=== PATIENT | male | born 1980 | race Caucasian/White ===

== ENCOUNTER 2020-04-28 21:11 | Emergency (ER) | payer OTHER, SELFPAY ==
[2020-04-28 21:20] VITALS: BP 153/83; PULSE 81; RESP 15; TEMP 36.8; O2SAT 98
--- NOTE | 2020-04-28 21:33 | ED.EPISTAXIS ---
HPI - Epistaxis General Chief complaint: Epistaxis Stated complaint: nose bleed Time Seen by Provider: 04/28/20 21:33 Source: patient Mode of arrival: ambulatory Limitations: no limitations History of Present Illness HPI Narrative: 40-year-old previously well man comes in today complaining of nosebleeds from his left nare off and on for 3 days. He denies injury, cough, cold symptoms, fever or prior similar symptoms. He has had no unusual bleeding or bruising. He denies night sweats, shortness of breath and weakness. MD complaint: epistaxis Location: left nostril Onset (ago): day(s) (3) Duration: intermittent Treatment prior to arrival: nose pinching Related Data Allergies Allergy/AdvReac Type Severity Reaction Status Date / Time No Known Allergies Allergy Verified 04/28/20 21:28 Review of Systems Constitutional: Constitutional: Denies chills, Denies fever(s) and Denies weakness Eyes: Eyes: Denies change in vision and Denies photophobia ENT: Reports as per HPI, Denies dysphagia, Reports epistaxis, Denies nasal congestion and Denies sore throat Cardiovascular: Cardiovascular: Denies chest pain and Denies radiating jaw, neck or arm pain Respiratory: Respiratory: Denies cough, Denies dyspnea and Denies wheezing Gastrointestinal: Gastrointestinal: Denies abdominal pain, Reports nausea and Denies vomiting Genitourinary: Genitourinary: Denies hematuria, Denies dysuria and Denies urinary frequency Musculoskeletal: Musculoskeletal: Denies arthralgias, Denies joint swelling and Denies muscle cramps Integumentary/Breasts: Skin/Breast: Reports pruritus, Reports erythema and Reports rash Neurologic: Denies vertigo, Denies dizziness, Denies syncope, Denies headache(s) and Denies focal weakness Endocrine: Endocrine: Denies polydipsia and Denies polyuria Hematologic/Lymphatic: Hematologic/Lymphatic: Denies easy bleeding and Denies easy bruising Allergic/Immunologic: Allergic/Immunologic: Denies lip swelling and Denies wheezing PMFSH Surgical History Surgical History H/O bariatric surgery H/O knee surgery H/O shoulder surgery Social History Social History Smoking status: Never smoker Living arrangements: with family Exam Const: General: no acute distress and alert Orientation/consciousness: patient oriented x3 HENMT: Head: normal to inspection Ears: external ears normal, TM's normal bilaterally and EAC's normal General nose exam: Epistaxis present on the left (septal) anterior source Face and sinus: normal facial exam Mouth: Yes Normal oral and palatal mucosa present and Yes moist mucous membranes Throat: posterior oropharynx normal (save for scant blood) Eyes: Conjunctivae: conjunctivae normal Pupils: Equal, round and reactive pupils present EOM: EOMs intact bilaterally Neck: Neck: normal visual inspection and no lymphadenopathy Resp: Effort & Inspection: normal respiratory effort and not labored Auscultation: clear to auscultation bilaterally, no rales, no rhonchi and no wheezes Cardio: Rate: regular rate Rhythm: regular rhythm Heart sounds: no murmurs Skin: General skin exam: normal color, no jaundice and no pallor Rashes: no rashes Neuro: General: patient oriented x3, moves all extremities, no focal motor deficits and CN's II-XI intact bilaterally Speech: normal speech Extrem: General: normal to inspection and no clubbing, cyanosis or edema Psych: Appearance: grossly normal and well kempt Mental Status: mental status grossly normal Affect: normal affect Attitude: cooperative Thought content: Yes Normal thought content present Course Vital Signs Vital signs: Vital Signs Temperature 36.8 C 04/28/20 21:20 Pulse Rate 81 04/28/20 21:20 Respiratory Rate 15 04/28/20 21:20 Blood Pressure 153/83 H 04/28/20 21:20 Pulse Oximetry 98 04/28/20 21:20 Temperature
[2020-04-28] MEDS: OXYMETAZOLINE HCL 0.05% NAS 15 ML BTL (*BKC) 1 SPRAY (21:38)
[2020-04-28 22:02] LABS: Basophils Absolute Auto 0.08 K/mm3 (0.00-0.10); Basophils Percent Auto 0.9 % (0.0-1.0); Eosinophils Absolute Auto 0.39 K/mm3 (0.02-0.50); Eosinophils Percent Auto 4.3 % (1.0-6.0); Hemoglobin 14.6 g/dL (14.0-18.0); Immature Granulocyte Absolute 0.03 K/mm3 (0.00-0.00); Immature Granulocyte Percent A 0.3 % (0.0-0.0); Lymphocytes Percent Auto 22.2 % (18.0-42.0); Mean Corpuscular Hemoglobin 32.1 pg (27.0-31.0); Mean Corpuscular Volume 94.5 fL (78.0-102.0); Mean Platelet Volume 9.1 fl (8.7-11.0); Monocytes Absolute Auto 0.61 K/mm3 (0.10-0.90); Monocytes Percent Auto 6.8 % (2.0-11.0); Neutrophils Absolute Auto 5.9 K/mm3 (1.7-7.2); Neutrophils Percent Auto 65.5 % (50.0-70.0); Platelet Count Result 272 K/mm3 (150-420); Red Blood Count 4.55 M/mm3 (4.70-6.10); Red Cell Distribution Width 13.2 % (11.6-14.4)
[2020-04-28 22:17] LABS: Partial Thromboplastin Time 27.5 SEC (22.3-31.6); Prothrombin Time 10.1 Seconds (9.64-11.0)
--- NOTE | 2020-04-28 22:17 | PC.NURSE ---
ERP ATTEMPTED LEFT NASAL PACKING WITH AFRIN. BLEEDING BEGAN SHORTLY AFTER. ERP THEN INSERTED LEFT NASAL BALLOON.
[2020-04-28 22:27] LABS: Alanine Aminotransferase 40 U/L (16-63); Albumin Level 3.4 g/dL (3.4-5.0); Alkaline Phosphatase 107 U/L (46-116); Anion Gap 15.4 mmol/L (7-16); Aspartate Amino Transferase 24 U/L (15-37); Bilirubin,Total 0.2 mg/dL (0.00-1.00); Blood Urea Nitrogen 13 mg/dL (7-18); Calcium 7.8 mg/dL (8.5-10.1); Carbon Dioxide 22 mmol/L (21-32); Chloride 101 mmol/L (98-108); Estimated CRCL calculation 158 ml/min; Estimated Glomerular Filt Rate > 60; Glucose 108 mg/dL (70-99); Osmolality Calculated 281 mOsm/kg (285-295); Potassium 3.4 mmol/L (3.5-5.1); Sodium 135 mmol/L (136-145); Total Protein 6.7 g/dL (6.4-8.2)
[2020-04-28 22:42] VITALS: BP 133/75; RESP 15; O2SAT 98
[2020-04-28] MEDS: AMOXICILLIN 500 MG CAPSULE 1000 MG PO (22:48)
== END 2020-04-28 22:52 | disposition home or self-care (01) ==
PROVIDERS: Emergency Provider Emergency Medicine
DX: R04.0 Epistaxis (principal)
CPT/HCPCS: 30901; 36415; 80053; 85025; 85610; 85730; 99283; A9270

== ENCOUNTER 2020-04-30 21:16 | Emergency (ER) | payer OTHER, SELFPAY ==
--- NOTE | 2020-04-30 21:26 | ED.EPISTAXIS ---
HPI - Epistaxis General Chief complaint: Epistaxis Stated complaint: nose bleed Time Seen by Provider: 04/30/20 21:36 Source: patient Mode of arrival: ambulatory Limitations: no limitations History of Present Illness HPI Narrative: 40-year-old man comes in today complaining of bleeding from his left nare. The patient was seen here 2 days ago after left near bleeding intermittently for several days. At that time a 4.5 cm anterior rhino rocket was placed and hemostasis was achieved. His coags, LFTs and CBC were normal. he followed up with the ear nose and throat doctor in the next day who did some cauterization and repacked it. Began to have some bleeding yesterday and removed the packing. He had 10 minutes episodes of bleeding off and on for much of the day, knitting in his return here. complaint: epistaxis Location: left nostril Onset (ago): day(s) (5) Duration: intermittent Treatment prior to arrival: nose pinching and head leaned forward Related Data Allergies Allergy/AdvReac Type Severity Reaction Status Date / Time No Known Allergies Allergy Verified 04/28/20 21:28 Review of Systems Constitutional: Constitutional: Denies chills, Denies fever(s) and Denies weakness Eyes: Eyes: Denies change in vision and Denies photophobia ENT: Reports as per HPI, Denies dysphagia, Reports nasal congestion and Denies sore throat Cardiovascular: Cardiovascular: Denies chest pain and Denies radiating jaw, neck or arm pain Respiratory: Respiratory: Denies cough, Denies dyspnea and Denies wheezing Gastrointestinal: Gastrointestinal: Denies abdominal pain, Denies diarrhea, Reports nausea and Denies vomiting Hematologic/Lymphatic: Hematologic/Lymphatic: Denies easy bleeding and Denies easy bruising Allergic/Immunologic: Allergic/Immunologic: Denies lip swelling and Denies wheezing PMFSH Surgical History Surgical History H/O bariatric surgery H/O knee surgery H/O shoulder surgery Social History Social History Smoking status: Never smoker Exam Const: General: alert Nutritional Appearance: obese Orientation/consciousness: patient oriented x3 Other: Mild acute distress HENMT: Head: normal to inspection Ears: external ears normal, TM's normal bilaterally and EAC's normal Mouth: Yes Normal oral and palatal mucosa present and Yes moist mucous membranes Throat: posterior oropharynx normal ( save for some scant draining blood.) Other: Oozing left septal lesion. Diffuse hyperemia. No right anterior bleeding source visible although there is a scant amount of blood in the right nare. Eyes: Conjunctivae: conjunctivae normal Pupils: Equal, round and reactive pupils present EOM: EOMs intact bilaterally Resp: Effort & Inspection: normal respiratory effort and not labored Auscultation: clear to auscultation bilaterally, no rales, no rhonchi and no wheezes Cardio: Rate: regular rate Rhythm: regular rhythm Heart sounds: no murmurs Skin: General skin exam: normal color, no jaundice and no pallor Rashes: no rashes Neuro: General: patient oriented x3, moves all extremities, no focal motor deficits and CN's II-XI intact bilaterally Speech: normal speech Extrem: General: normal to inspection and no clubbing, cyanosis or edema Psych: Appearance: grossly normal and well kempt Mental Status: mental status grossly normal Affect: normal affect Attitude: cooperative Thought content: Yes Normal thought content present Procedures Epistaxis Control left: Epistaxis Control Date: 04/30/20 Time Out Performed: Yes Nose Prepped With: oxymetazoline Direct Inspection: yes and anterior source identified Clots Removed by: blowing nose and manually Cautery Used: none Device Inserted: hemostatic balloon and hemostatic dressing Device Size: 4 Patient Tolerated Procedure: w
[2020-04-30 21:30] VITALS: BP 176/102; PULSE 81; RESP 18; TEMP 37; O2SAT 97
[2020-04-30] MEDS: OXYMETAZOLINE HCL 0.05% NAS 15 ML BTL (*BKC) 4 SPRAY NASAL (21:50)
[2020-04-30 22:34] VITALS: BP 161/98
--- NOTE | 2020-04-30 22:44 | PC.NURSE ---
Report to [facility]
--- NOTE | 2020-04-30 22:57 | PC.NURSE ---
oriented to new patient care technician at bedside placing rhino-rocket
[2020-04-30 22:59] VITALS: BP 140/90; PULSE 88; RESP 18
[2020-04-30 23:28] VITALS: BP 144/90; PULSE 88; RESP 16; TEMP 36.6
== END 2020-04-30 23:29 | disposition home or self-care (01) ==
PROVIDERS: Emergency Provider Emergency Medicine
DX: R04.0 Epistaxis (principal)
CPT/HCPCS: 30901; 99282; 99283; A9270

== ENCOUNTER 2020-05-02 12:09 | Emergency (ER) | payer OTHER, SELFPAY ==
[2020-05-02 12:30] VITALS: BP 135/72; PULSE 68; RESP 20; O2SAT 98
--- NOTE | 2020-05-02 12:53 | ED.EPISTAXIS ---
HPI - Epistaxis General Chief complaint: Epistaxis Stated complaint: bleeding nose Source: patient Mode of arrival: ambulatory Limitations: no limitations History of Present Illness HPI Narrative: 40-year-old male patient is here with chief complaints of continuous bleeding from the left nostril. Patient states that he has been dealing with the bleeding on the left side for almost a week and has been seen in the ER and by an ENT in this past week. He had a cauterization of the nasal septum done by the ENT but he continued to bleed after that and was seen in the ER 3 days ago and had a rhino rocket put in place. patient states that since then the bleeding has not completely stopped. Apparently this morning the bleeding got worse and it was leaking through the rhino rocket. patient states that in the allergen season he does get dried nose however he denies any nose picking. He denies any other source of bleeding in his urine or stools. patient does not take any blood thinners. MD complaint: epistaxis Location: left nostril Onset (ago): day(s) (several) Related Data Allergies Allergy/AdvReac Type Severity Reaction Status Date / Time No Known Allergies Allergy Verified 04/28/20 21:28 [facility] Past Medical History Medical History Left-sided epistaxis Surgical History Surgical History H/O bariatric surgery H/O knee surgery H/O shoulder surgery Social History Social History Smoking status: Never smoker Exam Const: General: no acute distress and alert Orientation/consciousness: patient oriented x3 HENMT: Head: normal to inspection General nose exam: Epistaxis present (left ) on the left anterior source Resp: Effort & Inspection: normal respiratory effort Neuro: General: patient oriented x3 and moves all extremities Speech: normal speech Gait exam (Neuro): Normal gait present Psych: Mental Status: mental status grossly normal Course Course Emergency Course: The old rhino rocket has been removed without any difficulty. I am unable to identify any bleeding source. Left nostril has been irrigated generously with normal saline and after 2 sprays of Afrin the left nostril is packed again with a rhino rocket. patient tolerated that well. Vital Signs Vital signs: Vital Signs Pulse Rate 68 05/02/20 12:30 Respiratory Rate 20 05/02/20 12:30 Blood Pressure 135/72 05/02/20 12:30 Pulse Oximetry 98 05/02/20 12:30 Pulse Rate 68 05/02/20 12:30 Respiratory Rate 05/02/20 12:30 Blood Pressure 135/72 05/02/20 12:30 Pulse Oximetry 98 05/02/20 12:30 Procedures Epistaxis Control left: Epistaxis Control Date: 05/02/20 Epistaxis Control Time: 13:14 Time Out Performed: Yes MDM - Epistaxis MDM Narrative Medical decision making narrative: epistaxis is controlled. Patient has an appointment with his ENT specialist tomorrow morning and he is encouraged to keep it Discharge Plan Discharge Clinical Impression: Left-sided epistaxis Patient Disposition: Home, Self-Care Condition: Stable Instructions: Antibiotic Form, Nosebleed (ED) Additional Instructions: stay well-hydrated. keep follow-up with the ENT specialist as scheduled tomorrow Prescriptions: No Action amoxicillin 875 mg tablet 875 mg PO Q12H Qty: 20 RF: 0 Follow-up/Referrals: UNKNOWN,DOCTOR [Primary Care Provider] -
[2020-05-02] MEDS: OXYMETAZOLINE HCL 0.05% NAS 15 ML BTL (*BKC) 1 SPRAY (13:05)
[2020-05-02 13:21] VITALS: RESP 16
== END 2020-05-02 13:22 | disposition home or self-care (01) ==
PROVIDERS: Emergency Provider Emergency Medicine
DX: R04.0 Epistaxis (principal)
CPT/HCPCS: 30901; 99282; 99283; A9270

== ENCOUNTER 2020-05-03 11:02 | Emergency (ER) | payer OTHER, SELFPAY ==
[2020-05-03 11:10] VITALS: BP 181/85; PULSE 83; RESP 18; TEMP 37.1; O2SAT 100
[2020-05-03 11:41] LABS: Basophils Absolute Auto 0.1 K/mm3 (0.0-0.1); Eosinophils Absolute Auto 0.3 K/mm3 (0-0.3); Eosinophils Percent Auto 4.4 % (0-4.4); Hematocrit 35.9 % (42.0-52.0); Hemoglobin 11.9 g/dL (14.0-18.0); Immature Granulocyte Absolute 0.03 K/mm3 (0.00-0.031); Immature Granulocyte Percent A 0.4 % (0-0.5); Lymphocytes Absolute Auto 1.46 K/mm3 (0.9-3.2); Lymphocytes Percent Auto 19.9 % (18.3-44.2); Mean Corpuscular HGB Conc 33.1 g/dl (32-36); Mean Corpuscular Hemoglobin 31.6 pg (26-34); Mean Corpuscular Volume 95.5 fl (80-100); Mean Platelet Volume 9.6 fl (7.4-10.4); Monocytes Absolute Auto 0.5 K/mm3 (0.1-0.6); Monocytes Percent Auto 7.3 % (2.6-8.5); Neutrophils Absolute Auto 4.9 K/mm3 (1.3-6.7); Platelet Count Result 319 k/mm3 (150-375); Red Blood Count 3.76 M/mm3 (4.6-6.20); Red Cell Distribution Width 13.2 % (11.5-14.5); White Blood Count 7.4 K/mm3 (4.5-10.0)
[2020-05-03 11:48] LABS: Prothrombin Time 12.5 Seconds (11.1-14.7)
[2020-05-03 11:49] LABS: Partial Thromboplastin Time 28.3 SECONDS (22.3-36.8)
[2020-05-03 11:55] LABS: Blood Urea Nitrogen 15 mg/dL (9-20); Calcium 8.1 mg/dL (8.4-10.2); Carbon Dioxide 25 mmol/L (22-30); Chloride 104 mmol/L (98-107); Estimated CRCL calculation 225 ml/min; Estimated Glomerular Filt Rate > 60; Glucose 95 mg/dL (75-110); Sodium 135 mmol/L (137-145)
--- NOTE | 2020-05-03 11:55 | ED.EPISTAXIS ---
HPI - Epistaxis General Chief complaint: Epistaxis <Clifford Dutta PA-C - Last Filed: 05/03/20 11:58> Stated complaint: NOSE BLEED <Clifford Dutta PA-C - Last Filed: 05/03/20 11:58> Time Seen by Provider: 05/03/20 11:07 <Clifford Dutta PA-C - Last Filed: 05/03/20 11:58> Source: patient and family <Clifford Dutta PA-C - Last Filed: 05/03/20 11:58> Mode of arrival: ambulatory <Clifford Dutta PA-C - Last Filed: 05/03/20 11:58> Limitations: no limitations <Clifford Dutta PA-C - Last Filed: 05/03/20 11:58> History of Present Illness HPI Narrative: Patient is a 40-year-old male who presents to emergency department for evaluation of epistaxis from the left nare for 1 week has been to 3 ERs into the ENT twice had cautery twice and multiple packings with continued bleeding. Patient denies any URI symptoms or other complaints or history of similar occurrence injury or trauma. Patient on arrival denying any pain. Patient was last seen this morning and had cautery with recurrence of bleeding which is described as heavy. On arrival to emergency department the bleeding has began to subside <Clifford Dutta PA-C - Last Filed: 05/03/20 11:58> Related Data Home medications: Home Medications Medication Instructions Recorded Confirmed amoxicillin 875 mg PO Q12H 05/03/20 <Clifford Dutta PA-C - Last Filed: 05/03/20 11:58> Allergies/adverse reactions: Allergies Allergy/AdvReac Type Severity Reaction Status Date / Time No Known Allergies Allergy Verified 05/03/20 11:13 <Clifford Dutta PA-C - Last Filed: 05/03/20 11:58> Review of Systems Review of Systems: All systems reviewed & are unremarkable except as noted in HPI and below <Clifford Dutta PA-C - Last Filed: 05/03/20 11:58> PMFSH Past Medical History Medical History: Medical History Left-sided epistaxis <Clifford Dutta PA-C - Last Filed: 05/03/20 11:58> Surgical History Surgical History: Surgical History H/O bariatric surgery H/O knee surgery H/O shoulder surgery <Clifford Dutta PA-C - Last Filed: 05/03/20 11:58> Social History Social History: Social History Smoking status: Never smoker Gender identity (if verbalized by the patient): Male <Clifford Dutta PA-C - Last Filed: 05/03/20 11:58> Exam Narrative: Exam Narrative: GENERAL: Well-appearing, obese, and in no acute distress. HEAD: Normocephalic, atraumatic. EYES: PERRLA and EOMI. ENT: Nares clear, patient with some blood-tinged rhinorrhea no active epistaxis cautery sites seen no active bleeding. Mucous membranes moist. Oropharynx without tonsillar hypertrophy exudate or other lesions. CHEST: Clear to auscultation. No respiratory distress. No wheezes rales or rhonchi HEART: Regular rate and rhythm. No murmur heard. . EXTREMITIES: Normal range of motion. No edema. SKIN: Warm, dry, no rash. NEURO: No focal deficits. Alert and oriented x3. PSYCH: Normal mood and affect. <Clifford Dutta PA-C - Last Filed: 05/03/20 11:58> Course Course Emergency Course: Patient in the room aware of recommendations and discussions with specialist agreeing to go to [facility] for further evaluation of his epistaxis <Clifford Dutta PA-C - Last Filed: 05/03/20 11:58> DEHYDRATOR TENDER/PA Physician Supervision Attestation for Clifford Dutta at 12:05 PM. [id number] with the patient and his for 15 minutes. He has had recurrent severe nosebleeds over the past week. His blood pressure is high when he is having the nosebleed, and then low after it resolved. He does not have a history of hypertension. He is being transferred to [facility] to see their ear nose and throat doctors. There is no bleeding currently. He sitting up, and says that
[2020-05-03 12:28] VITALS: PULSE 80; RESP 20; O2SAT 100
== END 2020-05-03 13:33 | disposition short-term general hospital (02) ==
PROVIDERS: Emergency Medicine Emergency Medical Services; Emergency Provider Emergency Medicine
DX: R04.0 Epistaxis (principal); R03.0 Elevated blood-pressure reading, without diagnosis of hypertension; E66.01 Morbid (severe) obesity due to excess calories; Z68.43 Body mass index [BMI] 50.0-59.9, adult; Z98.84 Bariatric surgery status
CPT/HCPCS: 36415; 80048; 85025; 85610; 85730; 96365; 99285; J0131

== ENCOUNTER → 2020-05-05 09:48 | Outpatient (CLI) | payer OTHER, SELFPAY ==
--- NOTE | ~2020-05-05 | XR_ITS ---
EXAMINATION: XR chest 2V DATE: 05/05/2020 10:33 INDICATION: Tobacco use. TECHNIQUE: Frontal and lateral views of the chest were obtained. COMPARISON: None. FINDINGS: There is no pneumonia, pleural effusion, or pneumothorax. The heart size is normal. IMPRESSION: 1. No acute cardiopulmonary disease. Reviewed, dictated and finalized at location A.
== END ==
PROVIDERS: PCP Emergency Medicine; Visit Provider Emergency Medicine
DX: Z72.0 Tobacco use (principal)
CPT/HCPCS: 71046